=== PATIENT | female | born 1945 | race Hispanic/Latino ===

== ENCOUNTER 2018-10-29 10:15 | Emergency (ER) | payer MEDICARE ==
[~2018-10-29] VITALS: Ht 157.5 cm; Wt 72.1 kg
[2018-10-29] MEDS ORDERED: DIOVAN HCT 1601 EAC1 PO (10:55)
[2018-10-29] MEDS ORDERED: METFORMIN HCL500 MG PO (10:55)
[2018-10-29] MEDS ORDERED: PREDNISONE10 MG PO (10:55)
[2018-10-29] MEDS ORDERED: GEMFIBROZIL600 MG PO (10:55)
[2018-10-29] MEDS ORDERED: HYDROXYZINE HCL25 MG PO (10:55)
[2018-10-29] MEDS ORDERED: TRIAMCINOLONE A15 G1 (10:55)
[2018-10-29] MEDS ORDERED: NORCO 10-325 T1 EACH PO (10:55)
[2018-10-29] MEDS ORDERED: LEVOTHYROXINE150 MCG PO (10:55)
[2018-10-29] MEDS ORDERED: GABAPENTIN400 MG PO (10:55)
--- NOTE | 2018-10-29 11:01 | NUR ---
PT TOLD SHE HAS HAD ITCHING FOR THE LAST FIVE YEARS.
[2018-10-29] MEDS ORDERED: METHYLPREDNISOLONE ACETATE 80 MG/ML VIAL IM STA (11:35)
== END 2018-10-29 11:58 | disposition home or self-care (01) ==
LOC: FSED 10:15
DX: R21 Rash and other nonspecific skin eruption (principal); L29.9 Pruritus, unspecified; I10 Essential (primary) hypertension; E11.9 Type 2 diabetes mellitus without complications; M06.9 Rheumatoid arthritis, unspecified
CPT/HCPCS: 80048; 80076; 85025; 99283; J1040

== ENCOUNTER → 2020-04-24 | Outpatient (CLI) | payer MEDICARE ==
[~2020-04-24] MED LIST: DIOVAN HCT 1601 EAC1 PO; GABAPENTIN400 MG PO; GEMFIBROZIL600 MG PO; HYDROXYZINE HCL25 MG PO; LEVOTHYROXINE150 MCG PO; METFORMIN HCL500 MG PO; NORCO 10-325 T1 EACH PO; PREDNISONE10 MG PO; TRIAMCINOLONE A15 G1
== END ==
LOC: RAD 10:13
PROVIDERS: ATTEND Surgery
DX: L97.919 Non-pressure chronic ulcer of unspecified part of right lower leg with unspecified severity (principal)
CPT/HCPCS: 93925; 93970